=== PATIENT | female | born 1990 | race Hispanic/Latino ===

== ENCOUNTER 2023-05-17 05:48 | Inpatient (IN) | payer MEDICAID, OTHER ==
[2023-05-17 06:32] VITALS: BMI 28.8
[2023-05-17] MEDS ORDERED: Lidocaine 1% (PF) 30 ML VIAL SC PRN (06:36)
[2023-05-17] MEDS ORDERED: Misoprostol 200 MCG TAB PR PRN (06:36)
[2023-05-17] MEDS ORDERED: Ibuprofen 800 MG TAB PO PRN (06:36)
[2023-05-17] MEDS ORDERED: HYDROcodone/Acetaminophen 5/325 mg Tablet PO PRN ×2 (06:36→21:13)
[2023-05-17] MEDS ORDERED: Ondansetron PF 4 MG/2 ML Vial IVP PRN ×3 (06:36→21:13)
[2023-05-17] MEDS ORDERED: Acetaminophen 500 MG TAB PO PRN (06:36)
[2023-05-17] MEDS ORDERED: Tranexamic Acid 1,000 MG/10 ML VIAL IVP PRN (06:36)
[2023-05-17] MEDS ORDERED: hydrALAZINE 20 MG/ML VIAL SLOW IVP PRN ×2 (06:36→21:13)
[2023-05-17] MEDS ORDERED: Oxytocin 30 units/NS 500 ML 500 ML IV SCH ×3 (06:36)
[2023-05-17] MEDS ORDERED: Methylergonovine 0.2 MG/ML VIAL IM PRN (06:36)
[2023-05-17] MEDS ORDERED: fentaNYL 50 mcg/mL 1 mL Vial SLOW IVP PRN (06:36)
[2023-05-17] MEDS ORDERED: Diphenoxylate HCl/Atropine Tablet PO PRN (06:36)
[2023-05-17] MEDS ORDERED: Carboprost 250 MCG/ML AMP IM PRN (06:36)
[2023-05-17] MEDS ORDERED: Lactated Ringer's 1,000 ML IV SCH (06:36)
[2023-05-17] MEDS ORDERED: Promethazine HCl 25 MG/ML VIAL IM PRN ×3 (06:36→21:13)
[2023-05-17 07:33] LABS: Hematocrit 33.9 % (34.9-44.5); Hemoglobin 11.2 g/dL (12.0-15.5); Mean Corpuscular Hemoglobin 28.8 pg (27.0-33.0); Mean Corpuscular Volume 87.1 fl (81.6-98.3); Mean Platelet Volume 11.2 fl (7.4-10.4); Platelet Count 226 10x3/uL (150-450); RBC Distribution Width 15.7 % (11.5-14.5); Red Blood Cell (RBC) Count 3.89 10x6/uL (3.90-5.03)
[2023-05-17 08:00] LABS: HBSAg Index 0.21 S/CO (0-0.99); Hep B Surf Ag - L&D Non-Reactive S/CO (NonReactive)
[2023-05-17] MEDS ORDERED: Bupivacaine 0.25% HCL 30 ML VIAL ONE (08:00)
[2023-05-17 08:02] LABS: Syphilis Antibody Nonreactive (Nonreactive); Syphilis Antibody Index 0.06 S/CO (<1.00 Non-Reactive)
[2023-05-17] MEDS ORDERED: fentaNYL/Ropivacaine Epidural 100 ML ONE (16:11)
[2023-05-17] MEDS ORDERED: ePHEDrine Sulfate 50 MG/10 ML VIAL SLOW IVP PRN (16:53)
[2023-05-17] MEDS ORDERED: diphenhydrAMINE 50 MG/ML VIAL IVP PRN (16:53)
[2023-05-17] MEDS ORDERED: Naloxone HCl 0.4 mg/ml Vial IVP PRN ×2 (16:53)
[2023-05-17] MEDS ORDERED: Moisturizing Cream (Eucerin) 113 GM JAR TOP PRN (16:53)
[2023-05-17] MEDS ORDERED: Lactated Ringer's 500 ML IV PRN (16:53)
[2023-05-17] MEDS ORDERED: Acetaminophen 325 MG TAB PO PRN (16:53)
[2023-05-17] MEDS ORDERED: fentaNYL 2 mcg/Ropivacaine 0.2% Epidural 100 ML CADD EPIDURAL SCH (17:00)
[2023-05-17] MEDS ORDERED: Communication Order-Pharmacy FS SCH (17:00)
[2023-05-17] MEDS ORDERED: Lanolin Ointment 7 GM TUBE TOP PRN (21:13)
[2023-05-17] MEDS ORDERED: Boostrix 0.5 ML (Tdap) VIAL (>/=7 yrs of age) IM ONE (21:13)
[2023-05-17] MEDS ORDERED: Bisacodyl 10 MG SUPP PR PRN (21:13)
[2023-05-17] MEDS ORDERED: Benzocaine-Menthol 82.5 ML CAN TOP PRN (21:13)
[2023-05-17] MEDS ORDERED: Milk Of Magnesia 30 ML UDCUP PO PRN (21:13)
[2023-05-17] MEDS ORDERED: Docusate 100 MG CAP PO SCH (21:30)
[2023-05-17] MEDS: Ibuprofen 800 MG TAB PO SCH (22:14)
[2023-05-18] MEDS: diphenhydrAMINE 25 MG CAP PO PRN ×2 (05:49→12:02)
[2023-05-18] MEDS: Ibuprofen 800 MG TAB PO SCH ×2 (05:49→14:40)
[2023-05-18] MEDS ORDERED: Prenatal Vitamin 1 TAB PO SCH (09:00)
[2023-05-18] MEDS ORDERED: Docusate 100 MG CAP PO SCH (09:00)
[2023-05-18] MEDS: Ferrous Sulfate 325 MG TAB PO SCH ×2 (09:48→15:16)
[2023-05-18 11:39] VITALS: BP 112/68; TEMP 98.4
== END 2023-05-18 21:33 | disposition home or self-care (01) | DRG 807 ==
LOC: CSHLD 05:48 → CSHPED 21:05
PROVIDERS: ADMIT Family Medicine; ATTEND Family Medicine
PROC: 10E0XZZ Delivery of Products of Conception, External Approach (ICD-10-PCS; principal; 2023-05-17)
PROC: 3E033XZ Introduction of Vasopressor into Peripheral Vein, Percutaneous Approach (ICD-10-PCS; 2023-05-17)
PROC: 10907ZC Drainage of Amniotic Fluid, Therapeutic from Products of Conception, Via Natural or Artificial Opening (ICD-10-PCS; 2023-05-17)
PROC: 3E033VJ Introduction of Other Hormone into Peripheral Vein, Percutaneous Approach (ICD-10-PCS; 2023-05-17)
DX: O69.81X0 Labor and delivery complicated by cord around neck, without compression, not applicable or unspecified (principal); Z37.0 Single live birth; Z3A.39 39 weeks gestation of pregnancy
CPT/HCPCS: 36415; 51702; 85027; 86780; 86850; 86900; 86901; 87340; S0020